=== PATIENT | male | born 1975 | race Hispanic/Latino ===

== ENCOUNTER 2019-10-02 19:40 | Inpatient (IN) | payer SELFPAY ==
[~2019-10-02 19:40] MED LIST: Dexamethasone 20 MG/5 ML VIAL ONE; Esmolol 100 MG/10 ML VIAL ONE; Glycopyrrolate 0.2 MG/ML 5 ML SYRINGE ONE; Iopamidol-370 76% 500 ML 1 ML ONE; Ondansetron PF 4 MG/2 ML Vial ONE; PHENYLEPHRINE-NS 100 MCG/ML 10 ML SYRINGE ONE; PROPOFOL 200 MG/20 ML VIAL ONE; Rocuronium Bromide 10 MG/ML (10ML VIAL) ONE; Succinylcholine Chloride 20 MG/ML 10 ml SYRINGE FS ONE; diphenhydrAMINE 50 MG/ML VIAL ONE
[2019-10-02] MEDS ORDERED: Morphine 4 MG/ML VIAL ONE (19:56)
[2019-10-02] MEDS ORDERED: Ondansetron PF 4 MG/2 ML Vial ONE (19:56)
[2019-10-02 20:10] LABS: Hemoglobin 9.5 g/dL (14.0-18.0); Mean Corpuscular HGB CONC 30.4 g/dL (32.0-36.0); Mean Corpuscular Hemoglobin 19.8 pg (27.0-31.0); Mean Corpuscular Volume 65.1 fL (78.0-98.0); Mean Platelet Volume 11.5 fL (7.4-10.4); Platelet Count 289 thou/uL (130-400); RBC Distribution Width 16.2 % (11.5-14.5); Red Blood Cell (RBC) Count 4.78 mill/uL (4.70-6.10); White Blood Cell (WBC) Count 23.1 thou/uL (4.8-10.8)
[2019-10-02] MEDS ORDERED: Piperacillin/Tazobactam 4.5 GM VIAL ONE (20:20)
[2019-10-02 20:32] LABS: ALT (SGPT) 8 U/L (8-55); AST (SGOT) 10 U/L (5-34); Albumin 3.9 g/dL (3.5-5.0); Alkaline Phosphatase 102 U/L (40-110); Anion Gap 12 mmol/L (10-20); Anisocytosis MODERATE=16-30 cells (100X) (0-5/hpf); BUN (Urea Nitrogen) 10 mg/dL (8.9-20.6); Band 22 % (5-11); Bilirubin, Total 0.8 mg/dL (0.2-1.2); Calc. Creatinine Clearance 0 mL/min (70-130); Calcium 8.6 mg/dL (7.8-10.44); Carbon Dioxide 24 mmol/L (22-29); Chloride 101 mmol/L (98-107); Estimated GFR-MDRD Greater than 90; Globulin 3.5 g/dL (2.4-3.5); Glucose 200 mg/dL (70-105); Hypochromia SLIGHT = 6-15 cells (100X) (0-5/hpf); Large Platelets SLIGHT; Lipase 13 U/L (8-78); Lymphocytes 1 % (21-51); MDiff Complete? YES; Microcytosis MODERATE=15-30 cells (100X) (0-5/hpf); Monocytes 7 % (0-10); Neutrophil 70 % (42-75); Ovalocytes SLIGHT = 2-5 cells (100X) (0-1/hpf); Platelet Morphology Comment Appears Adequate; Polychromasia SLIGHT = 2-3 cells (100X) (0-2/hpf); Potassium 3.4 mmol/L (3.5-5.1); Protein, Total 7.4 g/dL (6.0-8.3); Sodium 134 mmol/L (136-145); Stomatocytes SLIGHT = 2-5 cells (100X) (0-1/hpf); Target Cells SLIGHT = 2-5 cells (100X) (0-1/hpf)
--- NOTE | 2019-10-02 20:43 | CT ---
CT ABDOMEN AND PELVIS WITH CONTRAST: History: Abdominal pain Comparison: CT stone protocol for 2008 for reference. FINDINGS: Lung bases are clear. No pericardial effusion. Liver and gallbladder and spleen are unremarkable. There appears to be an ulcerative mass of the hepatic flexure with extradorsal extension and some drea roperforation to the adjacent mesentery. Underlying infectious colitis is felt somewhat less likely. There are few right coloc abnormal lymph nodes. Transverse colon and descending colon are intact. No hydronephrosis. No abnormal hepatic mass. Too small to characterize hepatic hypodensities are present. No acute osseous abnormality. Disc osteophyte complex at L5-S1. IMPRESSION: Ulcerative mass of the hepatic flexure with microperforation along the medial wall and metastatic rig ht coloc lymph nodes. Code CR. Dr. Deng notified via telephone at 8:28 p.m. POS: HOME
[2019-10-02 20:58] LABS: INR-International Normal Ratio 1.1; PTT 27.3 sec (22.9-36.1); Prothrombin Time 14.4 sec (12.0-14.7)
--- NOTE | 2019-10-02 21:01 | RAD ---
CHEST ONE VIEW: History: Pre-operative evaluation. Comparison: 2013 FINDINGS: The heart size is mildly enlarged. Lungs are hypoinflated with vascular crowding. IMPRESSION: No acute intrathoracic abnormality. POS: HOME
[2019-10-02 21:54] LABS: Bilirubin Negative (Negative); Blood, Urine Negative (Negative); Clarity Clear (Clear); Glucose, Urine (Dipstick) 30 mg/dL (Negative); Leukocyte Negative Leu/uL (Negative); Nitrite Negative (Negative); Protein, Urine (Dipstick) Negative (Neg-Trace); Urobilinogen Normal mg/dL (Less than 2)
[2019-10-02] MEDS ORDERED: Ketamine 50 MG/ML (10ML VIAL) ONE (22:02)
[2019-10-02] MEDS ORDERED: Midazolam HCl 2 mg/2 ml Vial ONE (22:02)
[2019-10-02] MEDS ORDERED: Albumin 5% 500 ML ONE ×2 (22:02→22:37)
[2019-10-02] MEDS ORDERED: Fentanyl 250 MCG/5 ML VIAL ONE (22:02)
[2019-10-02] MEDS ORDERED: Phenylephrine 10 MG/ML VIAL ONE (22:02)
--- NOTE | 2019-10-02 22:22 | HP ---
HISTORY OF PRESENT ILLNESS: Mr. Krause is a 44-year-old man, presented to emergency department today. The patient reports insidious onset right upper greater than left lower quadrant abdominal pain, which started approximately at 5:00 p.m. The pain was reported as sharp, rated as 7/10 at onset and increasing intensity to high 9/10. The pain is associated with multiple episodes of nausea, but no emesis. The patient denies any hematochezia or melena. He endorses a 40-pound weight loss over the last one year. He denies any fevers or chills. He denies any appetite loss or fatigue. PAST MEDICAL HISTORY: Pertinent for type 2 diabetes mellitus and essential hypertension for which he takes no medications. PAST SURGICAL HISTORY: Denies any previous surgeries. SOCIAL HISTORY: He was recently released from a three month incarceration. He is employed as a warehouse driver. He smokes about 5 cigarettes per day, has done so for about 15 years. He admits to occasional intake of ethanol in moderate amounts, usually drinks over the weekends. He denies any illicit drug abuse. FAMILY HISTORY: Notable for diabetes mellitus, essential hypertension, and ovarian carcinoma in his mother. He denies any family history of heart disease or any other gastrointestinal disorders. CURRENT MEDICATION: Includes oral hypoglycemics. ALLERGIES: THE PATIENT DENIES ANY KNOWN DRUG ALLERGIES. REVIEW OF SYSTEMS: Ten-point review of systems essentially unremarkable except as stated in past medical history and chief complaint. PHYSICAL EXAMINATION: GENERAL: This reveals a 44-year-old normally developed man, who is otherwise coherent, interactive, and appears stated age. The patient is alert and oriented x3. He appears to be in moderate acute distress secondary to severe abdominal pain. VITAL SIGNS: Currently include blood pressure 143/78, pulse 125, respiratory rate is 22, oxygen saturation is 98% on room air. HEENT: Reveals normocephalic and atraumatic. Pupils are equal, round, reactive to light and accommodation. Extraocular muscles are intact bilaterally. No scleral icterus present. HEART: Reveals regular rate with sinus tachycardia. No murmurs or gallops auscultated. LUNGS: Clear to auscultation bilaterally. His breathing is regular and nonlabored. ABDOMEN: Soft and diffusely tender to palpation, worse in the right upper quadrant. Liver and spleen otherwise nonpalpable below costal margin. EXTREMITIES: Reveal 2+ radial and pedal pulses bilaterally. No ankle edema is present. NEUROLOGIC: Reveals no focal deficits present. LABORATORY FINDINGS: Today include a CBC with 23,100 white blood cells, hemoglobin and hematocrit of 9.5 and 31.1, MCV 65.1, platelet count is 289,000. Differential counts as follows; 70 segmented neutrophils, 22 bands, 1 lymphocyte and 7 monocytes. PTT and INR normal at 27.3 seconds and 1.1 respectively. Metabolic profile; sodium 134, potassium 3.4, chloride is 101, bicarb is 24, BUN 10, creatinine 0.80, glucose 200, lactic acid 2.1. AST and ALT 10 and 8 respectively. Serum lipase is normal at 13. I have personally reviewed the CT scan of the abdomen and pelvis, which reveals an ulcerative mass in the colonic hepatic flexure with adjacent microperforation. No significant free fluid is noted. IMPRESSIONS: 1. Acute perforated viscus associated with colonic mass, likely neoplastic. 2. Acute microcytic and hypochromic anemia, likely secondary to neoplastic process. 3. Acute hypokalemia. 4. Type 2 diabetes mellitus. RECOMMENDATION: Exploratory laparotomy and possible bowel resection with primary anastomosis now. I have advised the patient of the above findings and recommendations. I have also informed him of the risks and benefits of the proposed surgery to include, but not limited to bleeding, infection, injury to bowel or surrounding structures. The patient is also made aware that there is a possibility for protective proximal ileostomy versus colostomy, either of which would be temporary if chosen. This information was given to the patient through a director of partner marketing in the presence of the patient's nurse. The patient indicates understanding of information provided. I have answered his questions. The patient is going to consent for this admission and surgical intervention. Job ID: [id number] [facility]
[2019-10-03] MEDS ORDERED: Ketorolac Tromethamine 30 MG/ML VIAL ONE (01:18)
[2019-10-03] MEDS ORDERED: diphenhydrAMINE 50 MG/ML VIAL IM PRN (01:22)
[2019-10-03] MEDS ORDERED: diphenhydrAMINE 25 MG CAP PO PRN (01:22)
[2019-10-03] MEDS ORDERED: Ketorolac Tromethamine 30 MG/ML VIAL IVP PRN (01:22)
[2019-10-03] MEDS ORDERED: diphenhydrAMINE 50 MG/ML VIAL IVP PRN (01:22)
[2019-10-03] MEDS ORDERED: Naloxone HCl 0.4 mg/ml Vial IV PRN (01:22)
[2019-10-03] MEDS ORDERED: Promethazine HCl 25 MG/ML VIAL IM PRN ×2 (01:22)
[2019-10-03] MEDS ORDERED: Ondansetron PF 4 MG/2 ML Vial IVP PRN ×2 (01:22)
[2019-10-03] MEDS ORDERED: hydrALAZINE 20 MG/ML VIAL SLOW IVP PRN (01:22)
[2019-10-03] MEDS ORDERED: Communication Order-Pharmacy FS SCH (01:30)
[2019-10-03] MEDS ORDERED: Sodium Chloride 0.9% 1,000 ML IV SCH (01:30)
[2019-10-03 01:47] VITALS: BMI 31.5
[2019-10-03 01:50] LABS: Lactic Acid 1.8 mmol/L (0.5-2.2)
[2019-10-03] MEDS ORDERED: HYDROmorphone 0.5 MG/0.5 ML SYRINGE SLOW IVP SCH (02:00)
--- NOTE | 2019-10-03 02:07 | OP ---
DATE OF PROCEDURE: 10/03/2019 PREOPERATIVE DIAGNOSES: 1. Acute perforated viscus with peritonitis. 2. Colon mass. POSTOPERATIVE DIAGNOSES: 1. Acute perforated viscus with peritonitis. 2. Colon mass. PROCEDURES PERFORMED: 1. Exploratory laparotomy. 2. Right hemicolectomy with primary anastomosis. 3. Wedge liver biopsy. 4. Feeding nasojejunal tube placement. ANESTHESIA: General endotracheal. ESTIMATED BLOOD LOSS: 200 mL. FLUIDS GIVEN: 1200 mL of crystalloids and 500 mL of 5% albumin. COUNTS: Sponge and instrument counts were verified as correct x2. COMPLICATIONS: None apparent at time of operation. INDICATIONS FOR OPERATION: A 44-year-old man, presented with 40-pound weight loss over one year and insidious onset right-sided abdominal pain. Clinical and radiographic examination were consistent with acute perforated viscus and incidental finding of large right colon mass. The patient was brought to the operating room for abdominal exploration. Findings are consistent with cloudy ascitic fluid associated with bulky right colon mass just proximal to the hepatic flexure extending to proximal transverse colon. There was also a spot on the anterolateral surface of the liver, which was biopsied for suspicion of metastatic disease. DESCRIPTION OF PROCEDURE: Informed consent was obtained from the patient and was brought to the operating room and placed in supine position. Following general anesthesia, a Gann catheter was inserted and placed to bedside drain. Nasogastric tube was inserted and placed to wall suction. Abdomen was sterilely prepped and draped in usual fashion. A midline incision was made using 10 scalpel. Incision was carried through subcutaneous tissues maintaining hemostasis using cautery. Fascia was incised in the midline exposing the peritoneum, beneath which was grasped x2 with hemostats. Peritoneal cavity was sharply entered using Metzenbaum scissors. The incisions were then extended superiorly and inferiorly. Bookwalter retractor was put in place to gain exposure. Moderate amount of cloudy ascitic fluid was evacuated. Small bowel was then run from ligament of Treitz down to terminal ileum. The large intestine was inspected from the cecum through the ascending colon to hepatic flexure, where a large bulky tumor was identified and the tumor extended into proximal transverse colon. Beyond the proximal transverse colon, the remainder of the colon was palpated free of any abnormalities down to the descending, sigmoid colon, and rectum. Previous nasogastric tube was palpated within the gastric lumen. Normal gallbladder was noted in the usual anatomic location. There was a small lesion in the inferolateral aspect of the liver, which was suspicious for metastatic disease and required biopsy. At this juncture, the right colon was mobilized along the white line of Toldt. Care was taken to avoid injury to underlying duodenum. I placed a rent through the mesentery of the distal ileum, approximately 6 cm from the ileocecal junction. Through this, SOL stapler was introduced and bowel was divided. I also placed another rent through the transverse mesocolon, approximately 7 cm to the termination of the bulky colon mass. Through this, again, SOL stapler was introduced and the bowel was divided. Mesentery of the right colonic specimen was sterilely divided using LigaSure device with good hemostasis. Specimen was passed off the operative field, followed by transmission to Pathology. At this juncture, a lip of omentum which was quite proximal to the specimen was serially divided using LigaSure device and passed off the operative field, followed by transmission to Pathology. The lesion in the anterior aspect of the liver was excised using a scalpel and passed off the operative field for pathology. Hemostasis was achieved here with cautery. At this juncture, a feeding nasojejunal tube was inserted by Anesthesia, the tip of which was palpated by myself within the gastric lumen. I manipulated tip of this catheter into proximal small bowel without resistance. I then decided to proceed with reapproximation of bowel continuity. To achieve this, the stapled end of the small bowel and transverse colon were approximated in a [id number] fashion, antimesenteric border using interrupted sutures of 3-0 silk. Enterotomies were made at both apices, through which free ends of SOL stapler was introduced and functional end-to-end but anatomic ileocolostomy was perfected. Resultant mesenteric defect was closed using a running stitch of 2-0 Vicryl. The abdominal cavity was copiously irrigated clear with saline solution. All sponges and instruments were removed and accounted for. I placed a sheet of Seprafilm in the deep pelvis prior to returning small bowel to normal anatomic location. I then placed a second sheet of Seprafilm over remainder of the small bowel, drawing omentum over this. Fascia was approximated in the midline using a running stitch of #1 single stranded PDS. Subcutaneous tissues were pulse lavaged with 3000 mL sterile saline. Hemostasis was achieved using cautery. Deep subcutaneous tissues were approximated using interrupted sutures of 3-0 Vicryl. Skin incision was closed using payton. Sterile dressings were applied. The patient tolerated this operation without any apparent complication and was returned to recovery room in satisfactory condition. Job ID: [id number]
[2019-10-03] MEDS: HYDROmorphone 10 mg/100 ml CADD IVPB PRN ×2 (02:13→23:57)
[2019-10-03] MEDS ORDERED: Potassium Chloride 20 MEQ in Lactated Ringer's 1,000 ML IV SCH (02:15)
[2019-10-03 02:20] LABS: Magnesium 1.2 mg/dL (1.6-2.6); Phosphorus 2.7 mg/dL (2.3-4.7)
[2019-10-03] MEDS: cefOXitin Sodium/Dextrose,Iso 2 GM in Premix Bag 1 BAG IVPB SCH ×3 (05:31→22:14)
[2019-10-03] MEDS: Insulin Regular 300 UNITS/3 ML VIAL SC PRN ×3 (05:33→16:50)
[2019-10-03 07:00] LABS: Hemoglobin 8.8 g/dL (14.0-18.0); Mean Corpuscular HGB CONC 30.1 g/dL (32.0-36.0); Mean Corpuscular Hemoglobin 19.9 pg (27.0-31.0); Mean Platelet Volume 11.1 fL (7.4-10.4); Platelet Count 277 thou/uL (130-400); RBC Distribution Width 16.1 % (11.5-14.5); Red Blood Cell (RBC) Count 4.41 mill/uL (4.70-6.10); White Blood Cell (WBC) Count 26.5 thou/uL (4.8-10.8)
[2019-10-03 07:13] LABS: Anion Gap 12 mmol/L (10-20); BUN (Urea Nitrogen) 8 mg/dL (8.9-20.6); Calc. Creatinine Clearance 144 mL/min (70-130); Calcium 7.7 mg/dL (7.8-10.44); Carbon Dioxide 23 mmol/L (22-29); Chloride 104 mmol/L (98-107); Estimated GFR-MDRD Greater than 90; Glucose 285 mg/dL (70-105); Magnesium 1.4 mg/dL (1.6-2.6); Potassium 4.2 mmol/L (3.5-5.1); Sodium 135 mmol/L (136-145)
[2019-10-03 07:17] LABS: Band 13 % (5-11); Hypochromia SLIGHT = 6-15 cells (100X) (0-5/hpf); Lymphocytes 1 % (21-51); MDiff Complete? YES; Metamyelocyte 1 % (0-0); Microcytosis MODERATE=15-30 cells (100X) (0-5/hpf); Monocytes 1 % (0-10); Neutrophil 82 % (42-75); Platelet Morphology Comment Appears Adequate; Polychromasia SLIGHT = 2-3 cells (100X) (0-2/hpf); Promyelocytes 2 % (0-0)
[2019-10-03] MEDS ORDERED: Magnesium Sulfate 3 GM in Sodium Chloride 0.9% 100 ML IVPB SCH (09:00)
[2019-10-03] MEDS: Famotidine 20 MG TAB PO SCH ×2 (09:16→20:09)
[2019-10-03] MEDS: Famotidine/PF 20 mg/2ml Vial SLOW IVP SCH ×2 (09:16→20:09)
--- NOTE | 2019-10-03 09:20 | RAD ---
SINGLE VIEW OF THE ABDOMEN: COMPARISON: None. HISTORY: Dobbhoff tube placement. FINDINGS: A single view of the abdomen shows a nonspecific, nonobstructed bowel gas pattern. An NG tube is see n in the stomach. A Dobbhoff tube is seen with its tip near the ligament of Treitz. Midline skin st aples are seen. IMPRESSION: Appropriate position of nasogastric tube and Dobbhoff tube. POS: [facility]
[2019-10-03] MEDS: Lactated Ringer's 1,000 ML IV SCH ×2 (10:57→16:54)
[2019-10-03] MEDS: Enoxaparin Sodium 40 MG/0.4 ML SYRINGE SC SCH (10:58)
--- NOTE | 2019-10-03 19:50 | PRG ---
DATE OF SERVICE: 10/03/2019 SUBJECTIVE: The patient is currently on the surgical floor. He has been moved up from the critical care unit. He is status post exploratory laparotomy, right hemicolectomy with primary anastomosis, wide liver biopsy, and placement of feeding nasojejunal tube. The patient was admitted to the hospital last night for acute onset of abdominal pain, underwent evaluation and examination, and was noted to have a perforated viscus. At which time, he was taken to the operating room and underwent his above procedures. Postoperatively, he had a short stay in the critical care unit, and this morning was able to be moved to the surgical floor. He is currently tolerating trickle feed. His pain is controlled with the Dilaudid BOAT MASTER, and he has no complaints at this time. OBJECTIVE: VITAL SIGNS: Temperature is 98.3, heart rate 96, blood pressure 135/79, respirations 20, and oxygen saturation 95% on room air. GENERAL: The patient is resting comfortably in bed. He is awake, conversant, appropriate. LUNGS: Clear to auscultation bilaterally. HEART: Regular rate and rhythm. ABDOMEN: Soft with no gross peritoneal signs. Moderate tenderness near his incision site. His postop dressing is clean, dry, and intact. EXTREMITIES: Neurovascularly intact x4. LABORATORY FINDINGS: White blood cell count 26.5, hemoglobin 8.8, hematocrit 29.1, platelets 277. Sodium 135, potassium 4.2, chloride 104, CO2 of 23, BUN 8, creatinine 0.84, glucose 285, magnesium 1.4, phosphorus 3.0. There are no radiographs reviewed this morning. ASSESSMENT AND PLAN: 1. Status post exploratory laparotomy with right hemicolectomy with primary anastomosis. 2. Status post wedge liver biopsy. 3. Status post tube placement of feeding nasojejunal tube. 4. History of acute perforated viscus with peritonitis. 5. History of colon mass. PLAN: To continue supportive care, pain control with BOAT MASTER. Continue trickle feeds. Encourage ambulation tomorrow. Continue advancing tube feeds as tolerated. Job ID: [id number]
[2019-10-03] MEDS ORDERED: Dextrose 50% Abboject 50 ML SYRINGE IVP PRN (20:10)
[2019-10-03] MEDS ORDERED: Dextrose 5% in Water 1,000 ML IV PRN (20:10)
--- NOTE | 2019-10-04 01:57 | PRG ---
DATE OF SERVICE: 10/04/2019 SUBJECTIVE: Mr. Krause currently remains in surgical floor. The patient was seen on round this evening. The patient reports pain is well controlled. The patient not yet passing gas or have bowel. The patient's urine is adequate. Vital signs have been stable. NG tube put out of 175 today. NG tube working properly. Currently, the patient lying in bed comfortable with no acute respiratory distress. OBJECTIVE: VITAL SIGNS: Temperature 98.5, heart rate 99, respiratory rate 18, O2 saturation 97% on room air, and blood pressure 131/73. LUNGS: Clear bilaterally. HEART: Regular rate and rhythm. ABDOMEN: Soft and nondistended. NG tube working probably. Postop dressing clean, dry, and intact. EXTREMITIES: Neurovascularly intact x4. ASSESSMENT: Status post exploratory laparotomy with right hemicolectomy with primary anastomosis, status post wedge liver biopsy, perforated viscus with peritonitis, and colon mass. PLAN: Continue supportive care. Continue pain control. The patient will be working with Physical Therapy and Occupational Therapy. Continue tube feeding as tolerated. Job ID: [id number]
[2019-10-04] MEDS: cefOXitin Sodium/Dextrose,Iso 2 GM in Premix Bag 1 BAG IVPB SCH ×3 (05:09→21:50)
[2019-10-04] MEDS: Lactated Ringer's 1,000 ML IV SCH ×3 (05:09→16:01)
[2019-10-04 06:33] LABS: Anion Gap 9 mmol/L (10-20); BUN (Urea Nitrogen) 9 mg/dL (8.9-20.6); Calc. Creatinine Clearance 159 mL/min (70-130); Calcium 7.9 mg/dL (7.8-10.44); Carbon Dioxide 28 mmol/L (22-29); Chloride 103 mmol/L (98-107); Estimated GFR-MDRD Greater than 90; Glucose 151 mg/dL (70-105); Potassium 3.6 mmol/L (3.5-5.1); Sodium 136 mmol/L (136-145)
[2019-10-04 07:14] LABS: #Eosinphils 0.1 thou/uL (0.0-0.7); #Lymphocytes 2.1 thou/uL (1.20-3.40); #Monocytes 0.9 thou/uL (0.11-0.59); %Basophils 0.3 % (0.0-1.0); %Eosinophils 0.4 % (0.0-10.0); %Lymphocytes 14.6 % (21.0-51.0); %Monocytes 6.6 % (0.0-10.0); %Neutrophils 78.1 % (42.0-75.0); Hemoglobin 7.7 g/dL (14.0-18.0); Mean Corpuscular HGB CONC 29.2 g/dL (32.0-36.0); Mean Corpuscular Hemoglobin 19.6 pg (27.0-31.0); Mean Corpuscular Volume 67.1 fL (78.0-98.0); Mean Platelet Volume 9.7 fL (7.4-10.4); Platelet Count 262 thou/uL (130-400); Red Blood Cell (RBC) Count 3.94 mill/uL (4.70-6.10); White Blood Cell (WBC) Count 14.1 thou/uL (4.8-10.8)
[2019-10-04] MEDS: Famotidine 20 MG TAB PO SCH ×2 (08:56→20:37)
[2019-10-04] MEDS: Enoxaparin Sodium 40 MG/0.4 ML SYRINGE SC SCH (09:02)
[2019-10-04 09:06] LABS: Magnesium 2.1 mg/dL (1.6-2.6); Phosphorus 1.4 mg/dL (2.3-4.7)
[2019-10-04 11:06] LABS: #Eosinphils 0.1 thou/uL (0.0-0.7); #Lymphocytes 1.6 thou/uL (1.20-3.40); #Neutrophils 11.7 thou/uL (1.40-6.50); %Basophils 0.2 % (0.0-1.0); %Eosinophils 0.4 % (0.0-10.0); %Monocytes 6.9 % (0.0-10.0); %Neutrophils 81.5 % (42.0-75.0); Mean Corpuscular HGB CONC 29.1 g/dL (32.0-36.0); Mean Corpuscular Hemoglobin 19.5 pg (27.0-31.0); Mean Platelet Volume 9.7 fL (7.4-10.4); Platelet Count 257 thou/uL (130-400); RBC Distribution Width 16.1 % (11.5-14.5); Red Blood Cell (RBC) Count 4.07 mill/uL (4.70-6.10); White Blood Cell (WBC) Count 14.4 thou/uL (4.8-10.8)
[2019-10-04 11:22] LABS: Anion Gap 9 mmol/L (10-20); BUN (Urea Nitrogen) 9 mg/dL (8.9-20.6); Calc. Creatinine Clearance 170 mL/min (70-130); Calcium 7.9 mg/dL (7.8-10.44); Carbon Dioxide 30 mmol/L (22-29); Chloride 102 mmol/L (98-107); Estimated GFR-MDRD Greater than 90; Glucose 175 mg/dL (70-105); Potassium 3.6 mmol/L (3.5-5.1); Sodium 137 mmol/L (136-145)
[2019-10-04 11:32] LABS: Phosphorus 1.2 mg/dL (2.3-4.7)
[2019-10-04] MEDS ORDERED: Potassium Phosphate 30 MMOL in Sodium Chloride 0.9% 250 ML 250 ML IVPB SCH (11:45)
[2019-10-04] MEDS ORDERED: Magnesium Sulfate 3 GM, Admixture Fee 1 EACH in Sodium Chloride 0.9% 100 ML IVPB SCH (12:15)
[2019-10-04] MEDS: Insulin Regular 300 UNITS/3 ML VIAL SC PRN (13:14)
--- NOTE | 2019-10-04 16:02 | PRG ---
DATE OF SERVICE: 10/04/2019 SUBJECTIVE: Mr. Krause is a 44-year-old man, who is postoperative day #1, status post exploratory laparotomy, right hemicolectomy with primary anastomosis, and wedge liver biopsy. The patient is awake and alert. He reports adequate pain control. Urinary output is adequate for the patient's age and weight. OBJECTIVE: VITAL SIGNS: Today include blood pressure 162/93, pulse 108, respiratory rate is 20, temperature is 99.6 degrees Fahrenheit, oxygen saturation is 95% on room air. HEENT: Reveals normocephalic and atraumatic. Pupils are equal, round, reactive to light, and accommodation. Extraocular muscles are intact bilaterally. No scleral icterus are present. Oral mucosa is pink and moist. No lesions noted. HEART: Reveals regular rate with sinus tachycardia. No murmurs or gallops auscultated. LUNGS: Clear to auscultation bilaterally. Breathing, regular and nonlabored. ABDOMEN: Soft and nondistended. Incision is intact, clean, and dry. He has no peritoneal signs on examination. LABORATORY FINDINGS: Today include a CBC with 14,400 white blood cells, hemoglobin and hematocrit 8.0 and 27.3 respectively, platelet count is 257,000. Metabolic profile; sodium 137, potassium 3.6, chloride is 102, bicarb is 30, BUN 9, creatinine 0.71, glucose 175, magnesium is 2.0, and phosphorus is 1.2. IMPRESSION: 1. Postop day #1 status post exploratory laparotomy with right hemicolectomy for metastatic colon carcinoma. 2. Acute hypokalemia. 3. Acute hypophosphatemia. 4. Chronic blood loss anemia secondary to metastatic colon carcinoma. 5. Essential hypertension. PLAN: 1. Correct abnormal electrolytes. 2. We will start the patient on low-dose antihypertensives. 3. Increase activity per Physical and Occupational Therapy. 4. Gann catheter will be discontinued. 5. We will continue with trophic enteral nutritional supplementation up until return of bowel function. 6. Above findings and plan discussed with the patient through a sewer digger. 7. He indicates understanding of information given. Job ID: [id number]
[2019-10-04] MEDS: Acetaminophen 325 MG TAB PO SCH (20:01)
[2019-10-04 20:42] LABS: Bacteria/HPF None Seen HPF (None Seen); Bilirubin Negative (Negative); Blood, Urine Negative (Negative); Clarity Clear (Clear); Glucose, Urine (Dipstick) 30 mg/dL (Negative); Leukocyte Negative Leu/uL (Negative); Nitrite Negative (Negative); Protein, Urine (Dipstick) 10 mg/dL (Neg-Trace); RBC/HPF 0-3 HPF (0-3); Squamous Epithelial None Seen HPF (0-3); Urobilinogen Normal mg/dL (Less than 2)
[2019-10-04 20:46] LABS: Urine Culture Reflex Yes Yes
--- NOTE | 2019-10-04 22:59 | PDOC.BPN ---
- Brief Progress Note DATE OF SERVICE: 10/04/2019 SUBJECTIVE: Mr. Krause currently remains in surgical floor. The patient was seen on round this evening. The patient reports pain is controlled. The patient not yet passing gas or have bowel. The patient's urine is adequate. Vital signs have been stable. NG tube put out of 400 today. NG tube working properly, NG tube is clammed and patient is tolerate with his tube feeding. This evening, patient developed fever with peak is 101 Currently, the patient lying in bed comfortable with no acute respiratory distress. OBJECTIVE: VITAL SIGNS: stable LUNGS: Clear bilaterally. HEART: Regular rate and rhythm. ABDOMEN: Soft and nondistended. NG tube working probably. Postop dressing clean, dry, and intact. EXTREMITIES: Neurovascularly intact x4. ASSESSMENT: Status post exploratory laparotomy with right hemicolectomy with primary anastomosis, status post wedge liver biopsy, perforated viscus with peritonitis, and colon mass. PLAN: Tylenol for fever. blood culture, urine culture is ordered Continue supportive care. Continue pain control. The patient will be working with Physical Therapy and Occupational Therapy. Continue tube feeding as tolerated.
[2019-10-05] MEDS ORDERED: Insulin Regular 300 UNITS/3 ML VIAL SC PRN (00:27)
[2019-10-05] MEDS: Lactated Ringer's 1,000 ML IV SCH ×2 (03:00→08:26)
[2019-10-05] MEDS: HYDROmorphone 10 mg/100 ml CADD IVPB PRN (03:00)
[2019-10-05] MEDS: Acetaminophen 325 MG TAB PO SCH ×3 (03:00→13:31)
[2019-10-05] MEDS: cefOXitin Sodium/Dextrose,Iso 2 GM in Premix Bag 1 BAG IVPB SCH ×3 (05:21→20:15)
[2019-10-05] MEDS: Insulin Regular 300 UNITS/3 ML VIAL SC PRN ×2 (05:33→13:03)
[2019-10-05 05:34] LABS: #Eosinphils 0.1 thou/uL (0.0-0.7); #Lymphocytes 1.6 thou/uL (1.20-3.40); #Monocytes 0.7 thou/uL (0.11-0.59); %Basophils 0.2 % (0.0-1.0); %Eosinophils 0.5 % (0.0-10.0); %Lymphocytes 17.4 % (21.0-51.0); %Monocytes 7.5 % (0.0-10.0); %Neutrophils 74.3 % (42.0-75.0); Hemoglobin 7.4 g/dL (14.0-18.0); Mean Corpuscular HGB CONC 28.7 g/dL (32.0-36.0); Mean Corpuscular Hemoglobin 19.1 pg (27.0-31.0); Mean Corpuscular Volume 66.4 fL (78.0-98.0); Platelet Count 257 thou/uL (130-400); RBC Distribution Width 15.6 % (11.5-14.5); Red Blood Cell (RBC) Count 3.86 mill/uL (4.70-6.10); White Blood Cell (WBC) Count 9.4 thou/uL (4.8-10.8)
[2019-10-05 05:55] LABS: Anion Gap 11 mmol/L (10-20); BUN (Urea Nitrogen) 6 mg/dL (8.9-20.6); Calc. Creatinine Clearance 183 mL/min (70-130); Calcium 7.9 mg/dL (7.8-10.44); Carbon Dioxide 28 mmol/L (22-29); Chloride 100 mmol/L (98-107); Estimated GFR-MDRD Greater than 90; Glucose 156 mg/dL (70-105); Magnesium 2.1 mg/dL (1.6-2.6); Phosphorus 2.3 mg/dL (2.3-4.7); Sodium 135 mmol/L (136-145)
[2019-10-05] MEDS: Famotidine 20 MG TAB PO SCH (08:25)
[2019-10-05] MEDS: Enoxaparin Sodium 40 MG/0.4 ML SYRINGE SC SCH (09:46)
--- NOTE | 2019-10-05 12:06 | PRG ---
DATE OF SERVICE: 10/05/2019 SUBJECTIVE: Mr. Krause is a postoperative day #2, status post exploratory laparotomy, right hemicolectomy for metastatic colon cancer. He reports adequate pain control. He is ambulating with minimum difficulty. Urinary output is adequate for the patient's age and weight. OBJECTIVE: VITAL SIGNS: Today include blood pressure 153/83, pulse 84, respiratory rate is 14, temperature is 99 degrees Fahrenheit with a maximum temperature within the last 24 hours of 101.4 degrees Fahrenheit, oxygen saturation 96% on room air. HEENT: Pupils are equal, round, reactive to light and accommodation. HEART: Reveals regular rate and rhythm. No murmurs or gallops auscultated. LUNGS: Clear to auscultation bilaterally. His breathing is regular, unlabored. ABDOMEN: Soft and nondistended. Incision is intact, clean, and dry. Bowel sounds are present in all 4 quadrants. NEUROLOGIC: Reveals no focal deficits present. LABORATORY FINDINGS: Include a CBC with 9400 white blood cells, hemoglobin and hematocrit 7.4 and 25.6 respectively. Platelet count is 257,000. Metabolic profile; sodium is 135, potassium 4.0, chloride is 100, bicarb is 28, BUN is 6, creatinine 0.66, glucose 156, magnesium 2.1, and phosphorus is 2.3. IMPRESSIONS: 1. Postop day #2, status post exploratory laparotomy, right hemicolectomy for metastatic colon cancer. 2. Acute hyponatremia. 3. Acute hypophosphatemia. PLAN: 1. Increase activity per Physical and Occupational therapy. 2. Continue trophic enteral nutritional supplementation until return of bowel function. 3. We will discontinue Gann catheterization. 4. We will consult Oncology once pathology report is released. 5. Above findings and plan discussed with the patient, who indicates understanding of information given. I have answered his questions. Job ID: [id number]
[2019-10-05] MEDS ORDERED: traMADol HCl 50 MG TAB PO PRN ×2 (14:07)
[2019-10-05] MEDS ORDERED: Ibuprofen 600 MG TAB PO PRN (14:08)
[2019-10-05] MEDS ORDERED: Acetaminophen 500 MG TAB PO SCH (14:30)
[2019-10-05] MEDS: Acetaminophen 500 MG TAB PO SCH (20:15)
[2019-10-05] MEDS: traMADol HCl 50 MG TAB PO SCH (20:23)
--- NOTE | 2019-10-05 21:05 | PDOC.BPN ---
- Brief Progress Note DATE OF SERVICE: 10/05/2019 SUBJECTIVE: Mr. Krause currently remains in surgical floor. The patient was seen on round this evening. The patient reports pain is well controlled. The patient stated that he has passing gas and having a small bowel. He tolerate with his tube feeding . NG tube was removed . No fever to be reported . The patient's urine is adequate. Vital signs have been stable. OBJECTIVE: Currently, the patient lying in bed comfortable with no acute respiratory distress. VITAL SIGNS: stable LUNGS: Clear bilaterally. HEART: Regular rate and rhythm. ABDOMEN: Soft and nondistended. NG tube working probably. Postop dressing clean, dry, and intact. EXTREMITIES: Neurovascularly intact x4. ASSESSMENT: Status post exploratory laparotomy with right hemicolectomy with primary anastomosis, status post wedge liver biopsy, perforated viscus with peritonitis, and colon mass. PLAN: Continue supportive care. Continue pain control. The patient will be working with Physical Therapy and Occupational Therapy. Continue tube feeding as tolerated.
[2019-10-06] MEDS: traMADol HCl 50 MG TAB PO SCH ×3 (01:18→13:28)
[2019-10-06] MEDS: Acetaminophen 500 MG TAB PO SCH ×3 (01:18→13:28)
[2019-10-06] MEDS: cefOXitin Sodium/Dextrose,Iso 2 GM in Premix Bag 1 BAG IVPB SCH (05:28)
[2019-10-06 05:45] LABS: Iron 13 ug/dL (65-175); Iron Binding Capacity, Total 299 mcg/dL (261-462)
[2019-10-06] MEDS ORDERED: Ferrous Sulfate 325 MG TAB PO SCH (08:00)
[2019-10-06] MEDS ORDERED: Ascorbic Acid 500 mg Chewable Tablet PO SCH (08:00)
[2019-10-06] MEDS: Enoxaparin Sodium 40 MG/0.4 ML SYRINGE SC SCH (08:51)
[2019-10-06] MEDS ORDERED: Amoxicillin/Potassium Clav 875 MG TAB PO SCH (09:00)
[2019-10-06] MEDS ORDERED: Lisinopril 20 MG TAB PO SCH (09:00)
[2019-10-06 11:35] VITALS: BP 129/87; TEMP 98.3
[2019-10-06] MEDS: Insulin Regular 300 UNITS/3 ML VIAL SC PRN (12:03)
--- NOTE | 2019-10-06 12:54 | DIS ---
DATE OF ADMISSION: 10/03/2019 DATE OF DISCHARGE: 10/06/2019 ADMITTING AND DISCHARGE PHYSICIAN: Arian Oliveira DO. ADMITTING DIAGNOSES: 1. Acute perforated viscus with peritonitis. 2. Colon mass. DIAGNOSES ON DISCHARGE: 1. Acute perforated viscus with peritonitis. 2. Colon mass. 3. Metastatic colon carcinoma. SURGERIES PERFORMED: Exploratory laparotomy with right hemicolectomy and primary anastomosis and wedge liver biopsy on 10/03/[address] Oliveira. Please see a separate dictation for the op report. HISTORY/HOSPITAL COURSE: A 44-year-old man presented to the emergency department with acute abdominal pain. Clinical radiographic examination was consistent with acute perforated viscus as well as a colon mass, for which, the patient underwent exploratory laparotomy. The findings were consistent with colon mass with a lesion in the liver, which was biopsy proven to be metastatic adenocarcinoma of the colon with liver metastasis. Postop day #3, the patient is ambulating with minimum difficulty. His pain is adequately controlled on oral analgesics. He is tolerating a full liquid diet, having normal bowel and urinary function. Incisional wound remains intact, clean, and dry. The patient has remained hemodynamically stable and afebrile through this hospitalization. DISCHARGE INSTRUCTIONS: He will be discharged home today with the following instructions. 1. The patient is to follow up with me in the Surgery Clinic in 10 days for staple removal. 2. He has been seen by Oncology today for possible outpatient adjuvant chemotherapy. 3. The patient is instructed to advance his diet and activity as tolerated. 4. He is to ambulate ad trish to avoid complications of venous thromboembolism. He may shower effective today. 5. He is to avoid weight lifting in excess of 20 pounds until he has been released by me. 6. He may take Tylenol 1000 mg p.o. q.6 hours alternating this with ibuprofen 600 mg p.o. q.8 hours p.r.n. pain. Additionally, he was given a prescription for tramadol 50 mg #30 to be taken 1 to 2 p.o. q.6 hours p.r.n. pain. 7. Given his recent colon perforation with peritonitis, the patient was treated with intravenous antibiotics, which was converted to Augmentin 875 mg p.o. b.i.d. 8. He was given a prescription for Augmentin 875 mg p.o. b.i.d. for additional 3 days. 9. The patient is to call me with any questions or problems including exacerbation of abdominal pain, fever in excess of 101 degrees Fahrenheit, intolerance to oral intake, or any abnormal drainage from the wound itself. 10. The patient indicates understanding of information. I provided him today through a foreign language teacher. 11. He has expressed deep gratitude for the care rendered to him during this hospitalization and surgery. Job ID: [id number]
--- NOTE | 2019-10-06 16:09 | CON ---
DATE OF CONSULTATION: REASON FOR CONSULTATION: Metastatic colon cancer. HISTORY OF PRESENT ILLNESS: Mr. Krause is a pleasant 44-year-old gentleman who presented to the emergency room on 10/02 with acute onset of abdominal pain. He had nausea, but no emesis. He had a 40-pound weight loss over the prior year. No melena or hematochezia. He underwent an abdominal and pelvis CT scan. There was an ulcerative mass of the hepatic flexure with microperforation. There was metastatic right colon lymph node. He was taken to Surgery, had an exploratory laparotomy , a right hemicolectomy with primary anastomosis. He had a wedge liver biopsy. He was started on antibiotics. He has been recovering nicely from his surgery. His path of the colon is invasive adenocarcinoma, moderately differentiated, with extensive necrosis and inflammation. The tumor size was 6.5 cm, it was invading the subserosal adipose tissue. He had negative margins. He also had 30 negative lymph nodes. The liver biopsy showed a moderately differentiated metastatic adenocarcinoma. The patient is now eating well and is ready for discharge. He was seen at bedside with his present. Denies any complaints at this time. PAST MEDICAL HISTORY: 1. Diabetes, type 2. 2. Hypertension. PAST SURGICAL HISTORY: None. ALLERGIES: NO KNOWN DRUG ALLERGIES. HOME MEDICATIONS: None. FAMILY HISTORY: His mother had breast cancer and his uncle who had colon cancer. SOCIAL HISTORY: , lives with his spouse. States he smokes a few cigarettes daily. No illicit drug use. Drinks beer daily. REVIEW OF SYSTEMS: Ten-point review of systems is negative. PHYSICAL EXAMINATION: VITAL SIGNS: Temperature is 98.3, pulse is 92, respiratory rate 16, BP is 129/ 87, and he is 99% on room air. GENERAL: This is a well-developed, well-nourished male, in no acute distress. HEENT: Normocephalic and atraumatic. Pupils equal and reactive to light. NECK: Supple. CV: Regular rate and rhythm. LUNGS: Clear. ABDOMEN: Soft and nontender. He has a midline incision with payton intact. No drainage. EXTREMITIES: No clubbing or cyanosis. SKIN: No rash. HEMATOLOGIC: No petechiae or purpura. NEUROLOGIC: Nonfocal. PERTINENT LABORATORY DATA AND X-RAYS: Current WBCs 9.4, hemoglobin 7.4, hematocrit 25.6, MCV is 66.4, and platelet count is 257,000. He has 75% neutrophils and 17 % lymphocytes. PT is 14.4, INR is 1.1, and PTT is 27.3. Sodium is 135, potassium 4, chloride 100, CO2 is 28, BUN is 6, and creatinine 0.66. Hemoglobin A1c was 9. Calcium 7.9. Phosphorus 2.3. Magnesium 2.1. Iron is 13, TIBC is 299, iron saturation is 4, and ferritin is 55. Bilirubin is 0.8, AST is 10, ALT is 8, alkaline phosphatase is 102, serum total protein 7.4, albumin 3.9, globulin 3.3 , and lipase is 13. CEA is 2.57. ASSESSMENT: 1. Metastatic colon cancer. 2. Iron-deficiency anemia. DISCUSSION: The patient is ready for discharge home. He is currently taking oral iron, which he should continue at least twice a day at home. He is a candidate for chemotherapy. This was briefly discussed with the patient. He will likely receive FOLFOX regimen, which is every 2 weeks. He will need a MediPort once his peritonitis has resolved. He is going home on antibiotics and will follow up with Dr. Oliveira in the outpatient setting. He will see Dr. Hankins in 1 week to discuss treatment options. The patient has no insurance. He has seen the financial counselors and the process for financial assistance has started. Our piano case maker at the clinic will follow up with that. Thank you for the consult. We will be happy to take care of this gentleman. Job ID: [id number] [facility]
--- NOTE | 2019-10-08 08:06 | PQF ---
[employer]st [employer] JOSEFA Larson ARIAN OLIVEIRA U [id number] CLINICAL DOCUMENTATION CLARIFICATION FORM: POST DISCHARGE Addendum to original discharge summary date: ____ Late entry note date: __ DATE: 10/08/2019 ATTN: Arian Oliveira Please exercise your independent, professional judgment in responding to the clarification form. Clinical indicators are provided on the bottom of this form for your review Please check appropriate box(s) to clarify if the following diagnosis has been ruled in or ruled out: Sepsis [ ] Ruled in diagnosis [ ] Continue to treat [ x ] Resolved [ ] Ruled out diagnosis [ ] Cannot rule out diagnosis [ ] Other diagnosis [ ] Unable to determine In addition, please specify: Present on Admission (POA): [ x ] Yes [ ] No [ ] Unable to determine For continuity of documentation, please document condition throughout progress notes and discharge summary. Thank You. CLINICAL INDICATORS - SIGNS / SYMPTOMS / LABS Colon mass with bowel perforation. Sepsis - ED note Pulse 120, respiratory rate 22 - ED note Temperature 100.3 F - Vital signs WBC 26.5 on 10/02 and 14.4 on 10/03 - Laboratory RISK FACTORS Acute perforated viscus with peritonitis - Discharge summary Metastatic adenocarcinoma of the colon with liver metastasis - Discharge summary TREATMENTS IV Zosyn - Medications IV fluids 10/02 to 10/03 - Medications (This form is maintained as a part of the permanent medical record) 2014 [employer]. All Rights Reserved Miguel [email or web address]
== END 2019-10-06 17:20 | disposition home or self-care (01) | DRG 853 ==
LOC: ERS 19:40 → SDC 22:15 → CCU 10-03 01:26 → SURG A 10-03 09:25
PROVIDERS: ADMIT Surgery; ATTEND Surgery
PROC: 0DTF0ZZ Resection of Right Large Intestine, Open Approach (ICD-10-PCS; principal; 2019-10-03)
PROC: 0FB00ZX Excision of Liver, Open Approach, Diagnostic (ICD-10-PCS; 2019-10-03)
PROC: 0DHA7UZ Insertion of Feeding Device into Jejunum, Via Natural or Artificial Opening (ICD-10-PCS; 2019-10-03)
DX: A41.9 Sepsis, unspecified organism (principal); K63.1 Perforation of intestine (nontraumatic); K65.9 Peritonitis, unspecified; C18.9 Malignant neoplasm of colon, unspecified; C78.7 Secondary malignant neoplasm of liver and intrahepatic bile duct; E11.9 Type 2 diabetes mellitus without complications; I10 Essential (primary) hypertension; F17.210 Nicotine dependence, cigarettes, uncomplicated; D63.0 Anemia in neoplastic disease; E87.6 Hypokalemia; D50.0 Iron deficiency anemia secondary to blood loss (chronic); E83.39 Other disorders of phosphorus metabolism
CPT/HCPCS: 36415; 36416; 71045; 74018; 74177; 80048; 80053; 81001; 81003; 82274; 82378; 82728; 83036; 83540; 83550; 83605; 83690; 83735; 84100; 84145; 85025; 85610; 85730; 86850; 86900; 86901; 87040; 87076; 87086; 88307; 88309; 93005; 96365; 96375; J0694; J1100; J1170; J1200; J1650; J1815; J1885; J2250; J2270; J2370; J2405; J2543; J2704; J3010; J3475; J3480; J3490; J7050; J7120; P9045; Q9967; S0028

== ENCOUNTER 2019-10-20 08:06 | Outpatient (CLI) | payer OTHER ==
[2019-10-20] MEDS ORDERED: Iopamidol 370 76% 100 ML VIAL ONE (09:26)
--- NOTE | 2019-10-20 13:27 | CT ---
CT CHEST WITH IV CONTRAST CT ABDOMEN WITH IV CONTRAST CT PELVIS WITH IV CONTRAST 10/20/19 HISTORY: Cancer status post resection. Exam requested for staging. COMPARISON: CT abdomen and pelvis of 10/02/19. FINDINGS: No mediastinal, hilar or axillary mass or lymphadenopathy seen. No pleural or pericardial effusions a re identified. Small patchy areas of consolidation in the peripheral aspects of the lower lobes bilaterally, left gr eater than right. These appear to be new in the regions which are imaged on the previous study. There are few nodules in the superior segment of the right lobe of the liver measuring up to 1 cm. There is a new subcapsular 16 mm low dense lesion in the inferior aspect of the right lobe of the bryanna er highly suspicious for metastatic disease. A couple of residual 6 mm lymph nodes are seen in the ri ght pericolonic region. The mass in the right colon noted on the previous exam has been resected in t he interim. The spleen, pancreas, adrenal glands and kidneys are unremarkable. No calcified gallstones are seen. No free air, free fluid or retroperitoneal lymphadenopathy is seen. The small bowel loops are not abn ormally dilated. There is a small fat containing inguinal hernia. No evidence of osseous metastatic disease is seen. IMPRESSION: 1. Patchy areas of consolidation in the lower lobes are likely due to an infection. Viral pneumo jacobo such as COVID-19 should be considered. 2. A few nodules in the right lower lobe may be due to infection or metastatic disease. 3. New liver lesion is highly suspicious for metastatic disease. Findings were discussed over the telephone with Dr. Joe Hankins at 10:13 a.m. POS: SUSAN
== END 2019-10-20 08:07 | disposition home or self-care (01) ==
LOC: CT 08:06
PROVIDERS: ATTEND Internal Medicine Hematology & Oncology
DX: C18.9 Malignant neoplasm of colon, unspecified (principal); C18.3 Malignant neoplasm of hepatic flexure; R91.8 Other nonspecific abnormal finding of lung field; J18.1 Lobar pneumonia, unspecified organism; K76.9 Liver disease, unspecified
CPT/HCPCS: 71260; 74177; Q9967

== ENCOUNTER 2019-11-08 05:50 | Outpatient (CLI) | payer OTHER, SELFPAY ==
[2019-11-08 12:25] LABS: #Eosinphils 0.1 thou/uL (0.0-0.7); #Lymphocytes 1.9 thou/uL (1.20-3.40); #Monocytes 0.4 thou/uL (0.11-0.59); #Neutrophils 3.5 thou/uL (1.40-6.50); %Basophils 0.4 % (0.0-1.0); %Eosinophils 1.6 % (0.0-10.0); %Lymphocytes 32.9 % (21.0-51.0); %Monocytes 6.6 % (0.0-10.0); %Neutrophils 58.5 % (42.0-75.0); Hemoglobin 11.9 g/dL (14.0-18.0); Hypochromia SLIGHT = 6-15 cells (100X) (0-5/hpf); MDiff Complete? YES; Mean Corpuscular HGB CONC 31.1 g/dL (32.0-36.0); Mean Corpuscular Hemoglobin 23.1 pg (27.0-31.0); Mean Corpuscular Volume 74.3 fL (78.0-98.0); Mean Platelet Volume 9.6 fL (7.4-10.4); Microcytosis SLIGHT = 6-15 cells (100X) (0-5/hpf); Ovalocytes SLIGHT = 2-5 cells (100X) (0-1/hpf); Platelet Count 218 thou/uL (130-400); Platelet Morphology Comment Appears Adequate; Polychromasia SLIGHT = 2-3 cells (100X) (0-2/hpf); RBC Distribution Width 25.4 % (11.5-14.5); Red Blood Cell (RBC) Count 5.14 mill/uL (4.70-6.10); White Blood Cell (WBC) Count 5.9 thou/uL (4.8-10.8)
[2019-11-08 12:51] LABS: Anion Gap 13 mmol/L (10-20); BUN (Urea Nitrogen) 12 mg/dL (8.9-20.6); Calc. Creatinine Clearance 0 mL/min (70-130); Calcium 9.7 mg/dL (7.8-10.44); Carbon Dioxide 27 mmol/L (22-29); Chloride 102 mmol/L (98-107); Estimated GFR-MDRD Greater than 90; Glucose 176 mg/dL (70-105); Potassium 4.4 mmol/L (3.5-5.1); Sodium 138 mmol/L (136-145)
[2019-11-10 14:28] LABS: SARS-CoV-2 MS2 Positive; SARS-CoV-2 N Gene Positive; SARS-CoV-2 S Gene Negative; SARS-CoV-2 orf1ab Negative
== END 2019-11-08 05:51 | disposition home or self-care (01) ==
LOC: LABBT 05:50
PROVIDERS: ATTEND Surgery
DX: Z01.812 Encounter for preprocedural laboratory examination (principal); Z11.59 Encounter for screening for other viral diseases; C18.9 Malignant neoplasm of colon, unspecified
CPT/HCPCS: 80048; 85025; 87635; U0003

== ENCOUNTER 2019-11-28 08:41 | Day surgery (SDC) | payer OTHER ==
[~2019-11-28 08:41] MED LIST changes: +BEVACIZUMAB AWWB IVPB SCH; +BEVACIZUMAB IVPB SCH; +DEXTROSE 5% IVPB SCH; -Dexamethasone 20 MG/5 ML VIAL ONE; -Esmolol 100 MG/10 ML VIAL ONE; +FLUOROURACIL IVPB SCH; -Glycopyrrolate 0.2 MG/ML 5 ML SYRINGE ONE; -Iopamidol-370 76% 500 ML 1 ML ONE; +OXALIPLATIN IVPB SCH; -Ondansetron PF 4 MG/2 ML Vial ONE; -PHENYLEPHRINE-NS 100 MCG/ML 10 ML SYRINGE ONE; -PROPOFOL 200 MG/20 ML VIAL ONE; +Palonosetron HCl 0.25 MG in Sodium Chloride 0.9% 50 ML IVPB SCH; -Rocuronium Bromide 10 MG/ML (10ML VIAL) ONE; +SODIUM CHLORIDE 0.9% IVPB SCH; -Succinylcholine Chloride 20 MG/ML 10 ml SYRINGE FS ONE; +WATER IVPB SCH; -diphenhydrAMINE 50 MG/ML VIAL ONE
[2019-11-28] MEDS ORDERED: Sodium Chloride 0.9% 20 ML ONE (10:04)
[2019-11-28 11:18] VITALS: BP 135/87; TEMP 97.8
== END 2019-11-28 14:22 | disposition home or self-care (01) ==
LOC: ONC/OP 08:41
PROVIDERS: ATTEND Internal Medicine Hematology & Oncology
DX: Z51.11 Encounter for antineoplastic chemotherapy (principal); C18.3 Malignant neoplasm of hepatic flexure
CPT/HCPCS: 96375; 96413; 96415; 96417; J1100; J2469; J7070; J9190; J9263

== ENCOUNTER 2019-12-12 09:52 | Day surgery (SDC) | payer OTHER ==
[~2019-12-12 09:52] MED LIST changes: -BEVACIZUMAB AWWB IVPB SCH; -OXALIPLATIN IVPB SCH
[2019-12-12] MEDS ORDERED: Sodium Chloride 0.9% 20 ML ONE (09:58)
[2019-12-12 10:19] VITALS: BP 143/90; TEMP 98.1
== END 2019-12-12 15:54 | disposition home or self-care (01) ==
LOC: ONC/OP 09:52
PROVIDERS: ATTEND Internal Medicine Hematology & Oncology
DX: Z51.11 Encounter for antineoplastic chemotherapy (principal); C18.3 Malignant neoplasm of hepatic flexure
CPT/HCPCS: 96375; 96413; 96415; 96416; 96417; J1100; J2469; J7070; J9263

== ENCOUNTER 2020-01-09 09:13 | Day surgery (SDC) | payer OTHER ==
[2020-01-09] MEDS ORDERED: Sodium Chloride 0.9% 20 ML ONE (10:02)
== END 2020-01-09 13:40 | disposition home or self-care (01) ==
LOC: ONC/OP 09:13
PROVIDERS: ATTEND Internal Medicine Hematology & Oncology
DX: Z51.11 Encounter for antineoplastic chemotherapy (principal); C18.3 Malignant neoplasm of hepatic flexure
CPT/HCPCS: 96375; 96413; 96415; 96416; 96417; J1100; J2469; J7070; J9190; J9263

== ENCOUNTER 2020-01-30 09:16 | Day surgery (SDC) | payer OTHER ==
[2020-01-30] MEDS ORDERED: Sodium Chloride 0.9% 20 ML ONE (09:38)
[2020-01-30 10:28] VITALS: BP 134/82; TEMP 97.8
== END 2020-01-30 13:38 | disposition home or self-care (01) ==
LOC: ONC/OP 09:16
PROVIDERS: ATTEND Internal Medicine Hematology & Oncology
DX: Z51.11 Encounter for antineoplastic chemotherapy (principal); C18.3 Malignant neoplasm of hepatic flexure
CPT/HCPCS: 96375; 96413; 96415; 96416; 96417; J1100; J2469; J7070; J9190; J9263

== ENCOUNTER 2020-02-13 09:11 | Day surgery (SDC) | payer OTHER ==
[2020-02-13] MEDS ORDERED: Sodium Chloride 0.9% 20 ML ONE (09:44)
[2020-02-13 11:21] VITALS: BP 143/91; TEMP 98.2
== END 2020-02-13 14:39 | disposition home or self-care (01) ==
LOC: ONC/OP 09:11
PROVIDERS: ATTEND Internal Medicine Hematology & Oncology
DX: Z51.11 Encounter for antineoplastic chemotherapy (principal); C18.3 Malignant neoplasm of hepatic flexure
CPT/HCPCS: 96375; 96413; 96415; 96416; 96417; J1100; J2469; J7070; J9190; J9263

== ENCOUNTER 2020-02-27 09:14 | Day surgery (SDC) | payer OTHER ==
[2020-02-27] MEDS ORDERED: Sodium Chloride 0.9% 20 ML ONE (09:19)
[2020-02-27 09:23] VITALS: BP 153/93; TEMP 98.3
== END 2020-02-27 14:15 | disposition home or self-care (01) ==
LOC: ONC/OP 09:14
PROVIDERS: ATTEND Internal Medicine Hematology & Oncology
DX: Z51.11 Encounter for antineoplastic chemotherapy (principal); C18.3 Malignant neoplasm of hepatic flexure
CPT/HCPCS: 96375; 96413; 96415; 96416; 96417; J1100; J2469; J7070; J9190; J9263

== ENCOUNTER 2020-03-06 08:27 | Outpatient (CLI) | payer OTHER ==
[2020-03-06] MEDS ORDERED: Iopamidol 370 76% 100 ML VIAL ONE (09:27)
--- NOTE | 2020-03-06 11:22 | CT ---
CT CHEST AND ABDOMEN AND PELVIS WITH IV CONTRAST: Date: 03/06/2020 PROVIDED CLINICAL HISTORY: Colon cancer. FINDINGS: The heart, pericardium, and great vessels demonstrate an unremarkable CT appearance. Left subclavian implanted port is redemonstrated in similar position. There is no evidence for thoracic lymph node enlargement. The airway appears patent and of normal caliber. The majority of the parenchymal abnormalities previously described involving the posterior aspects of the lower lobes have resolved. The previously described 9.0 mm pulmonary nodule involving the superior segment of the right upper lo be persists, having a somewhat curvilinear morphology suggesting the possibility of a small pulmonary AVM. There is no evidence for a new or enlarged pulmonary nodule. There is no pleural fluid or pneumothorax apparent. Interval prominent decrease in size of posterior segment right hepatic lobe mass, now measuring about 8.0 mm in greatest transverse dimension, as compared to about 1.6 cm on prior. There is no evidence for a new hepatic mass. The spleen, pancreas, kidneys, and adrenal glands appear unremarkable. There is no bowel dilatation, inflammatory fat stranding, free fluid, or lymph node enlargement appar ent. The osseous structures demonstrate no concerning lytic or blastic lesions. IMPRESSION: 1. Interval improvement/near resolution of previously described pulmonary parenchymal opacities. The largest persistent parenchymal abnormality demonstrates features suggesting small pulmonary arteriov enous malformation. Continued surveillance is recommended. 2. Interval decrease in right hepatic lobe lesion. POS: RUBEN
== END 2020-03-06 08:28 | disposition home or self-care (01) ==
LOC: BICCT 08:27
PROVIDERS: ATTEND Internal Medicine Hematology & Oncology
DX: C18.3 Malignant neoplasm of hepatic flexure (principal); K76.9 Liver disease, unspecified
CPT/HCPCS: 71260; 74177; Q9967

== ENCOUNTER 2020-03-25 10:48 | Emergency (ER) | payer OTHER, SELFPAY ==
[2020-03-25] MEDS ORDERED: HYDROcodone/Acetaminophen 5/325 mg Tablet ONE (11:06)
[2020-03-25] MEDS ORDERED: Ketorolac Tromethamine 30 MG/ML VIAL ONE (11:06)
== END 2020-03-25 11:13 | disposition home or self-care (01) ==
LOC: ERS 10:48
DX: K08.89 Other specified disorders of teeth and supporting structures (principal); Z79.899 Other long term (current) drug therapy; E11.9 Type 2 diabetes mellitus without complications
CPT/HCPCS: 96372; 99282; J1885

== ENCOUNTER 2020-03-26 10:05 | Day surgery (SDC) | payer OTHER | END 2020-03-26 10:30 | disposition home or self-care (01) | LOC: ONC/OP 10:05 | PROVIDERS: ATTEND Internal Medicine Hematology & Oncology | DX: Z51.11 Encounter for antineoplastic chemotherapy (principal); C18.3 Malignant neoplasm of hepatic flexure | CPT/HCPCS: 99211; G0463; J1100; J2469 ==

== ENCOUNTER 2020-04-09 09:09 | Day surgery (SDC) | payer OTHER ==
[~2020-04-09 09:09] MED LIST changes: +PALONOSETRON HCL 0.05 MG/ML 5 ML VIAL IVP SCH
[2020-04-09 10:15] VITALS: BP 170/93; TEMP 98.5
[2020-04-09] MEDS ORDERED: Sodium Chloride 0.9% 20 ML ONE (10:49)
== END 2020-04-09 14:05 | disposition home or self-care (01) ==
LOC: ONC/OP 09:09
PROVIDERS: ATTEND Internal Medicine Hematology & Oncology
DX: Z51.11 Encounter for antineoplastic chemotherapy (principal); C18.3 Malignant neoplasm of hepatic flexure
CPT/HCPCS: 96375; 96413; 96415; 96417; J1100; J2469; J7070; J9190; J9263

== ENCOUNTER 2020-06-10 09:27 | Day surgery (SDC) | payer OTHER ==
[~2020-06-10 09:27] MED LIST changes: -Palonosetron HCl 0.25 MG in Sodium Chloride 0.9% 50 ML IVPB SCH
[2020-06-10] MEDS ORDERED: Sodium Chloride 0.9% 20 ML ONE (09:30)
[2020-06-10 09:55] VITALS: BP 140/87; TEMP 97.6
== END 2020-06-10 13:55 | disposition home or self-care (01) ==
LOC: ONC/OP 09:27
PROVIDERS: ATTEND Internal Medicine Hematology & Oncology
DX: Z51.11 Encounter for antineoplastic chemotherapy (principal); C18.3 Malignant neoplasm of hepatic flexure
CPT/HCPCS: 96375; 96413; 96415; 96417; J1100; J2469; J7070; J9190; J9263

== ENCOUNTER 2020-07-03 09:54 | Day surgery (SDC) | payer OTHER ==
[~2020-07-03 09:54] MED LIST changes: +Palonosetron HCl 0.25 MG in Sodium Chloride 0.9% 50 ML IVPB SCH
[2020-07-03] MEDS ORDERED: Sodium Chloride 0.9% 20 ML ONE (10:13)
== END 2020-07-03 14:43 | disposition home or self-care (01) ==
LOC: ONC/OP 09:54
PROVIDERS: ATTEND Internal Medicine Hematology & Oncology
DX: Z51.11 Encounter for antineoplastic chemotherapy (principal); C18.3 Malignant neoplasm of hepatic flexure
CPT/HCPCS: 96375; 96413; 96415; 96416; 96417; J1100; J2469; J7070; J9190; J9263

== ENCOUNTER 2020-07-10 14:03 | Outpatient (CLI) | payer OTHER ==
[~2020-07-10 14:03] MED LIST changes: -BEVACIZUMAB IVPB SCH; -DEXTROSE 5% IVPB SCH; -FLUOROURACIL IVPB SCH; +Iopamidol 370 76% 100 ML VIAL ONE; -PALONOSETRON HCL 0.05 MG/ML 5 ML VIAL IVP SCH; -Palonosetron HCl 0.25 MG in Sodium Chloride 0.9% 50 ML IVPB SCH; -SODIUM CHLORIDE 0.9% IVPB SCH; -WATER IVPB SCH
--- NOTE | 2020-07-10 14:59 | CT ---
CT OF THE CHEST, ABDOMEN AND PELVIS WITH IV CONTRAST INDICATION: History of colon cancer with history of partial colectomy COMPARISON: CT of the chest, abdomen and pelvis dated February 27, 2020 and October 20, 2019 FINDINGS: CHEST: Lungs: No suspicious pulmonary nodules evident. There is an AV malformation and seen within the super ior segment of the right lower lobe that is stable. Pleural space: No effusion. Mediastinum: No pathologically enlarged lymph nodes are evident. Axilla: No pathologically enlarged lymph nodes. ABDOMEN: Liver: The small hypodense lesion involving segment 6 of the right hepatic lobe is stable measuring 8 mm. No new lesion is evident Gallbladder: Normal appearing. Pancreas: Normal. Adrenal glands: Normal. Spleen: Normal. Kidneys and ureters: Normal. No hydronephrosis. Vasculature: Normal. Lymph nodes:No lymphadenopathy. Free fluid in abdomen:No free fluid is evident. PELVIS: Small and large bowel: There is stable postsurgical change of a right hemicolectomy. There is a ileoc olonic anastomosis in the right lower quadrant of the abdomen. No definite recurrent soft tissue mass is evident at the anastomotic site. No pathologically enlarged lymph nodes are evident at the op erative site. Appendix:Surgically absent Bladder: Normal. Rectal and perirectal soft tissues:Normal. Reproductive structures: Normal. Free fluid in pelvis: No free fluid is evident. Lymphadenopathy pelvis: No lymphadenopathy is evident. Osseous structures: There are stable small bone island within the left ischium and left femoral head. No new suspicious osteolytic or osteoblastic lesion is identified. There is scattered degenerative and osteoarthritic changes. Soft tissues:Normal. IMPRESSION: 1. Stable examination the chest, abdomen and pelvis. 2. The small hypodense lesion suspicious for hepatic metastatic disease has been stable in size from the most recent comparison dated February 27, 2020. This is reduced in size from a comparison dated October 20, 2019. 3. Stable arteriovenous malformation and the superior segment of the right lower lobe. No new suspici ous pulmonary nodules are evident. 4. Stable postsurgical change of a right hemicolectomy and a right lower quadrant ileocolonic anastom osis. No overt evidence to suggest recurrent lesion at the anastomotic site.
== END 2020-07-10 14:04 | disposition home or self-care (01) ==
LOC: BICCT 14:03
PROVIDERS: ATTEND Internal Medicine Hematology & Oncology
DX: C18.3 Malignant neoplasm of hepatic flexure (principal); K76.9 Liver disease, unspecified
CPT/HCPCS: 71260; 74177; Q9967

== ENCOUNTER 2020-07-16 11:41 | Day surgery (SDC) | payer OTHER ==
[~2020-07-16 11:41] MED LIST changes: +BEVACIZUMAB IVPB SCH; +DEXTROSE 5% IVPB SCH; +FLUOROURACIL IVPB SCH; -Iopamidol 370 76% 100 ML VIAL ONE; +PALONOSETRON HCL 0.05 MG/ML 5 ML VIAL IVP SCH; +Palonosetron HCl 0.25 MG in Sodium Chloride 0.9% 50 ML IVPB SCH; +SODIUM CHLORIDE 0.9% IVPB SCH; +WATER IVPB SCH
[2020-07-16] MEDS ORDERED: Sodium Chloride 0.9% 20 ML ONE (12:03)
[2020-07-16 12:13] VITALS: BP 138/83; TEMP 98.1
== END 2020-07-16 16:38 | disposition home or self-care (01) ==
LOC: ONC/OP 11:41
PROVIDERS: ATTEND Internal Medicine Hematology & Oncology
DX: Z51.11 Encounter for antineoplastic chemotherapy (principal); C18.3 Malignant neoplasm of hepatic flexure
CPT/HCPCS: 96375; 96413; 96415; 96416; 96417; J1100; J2469; J7070; J9190; J9263

== ENCOUNTER 2020-07-30 09:05 | Day surgery (SDC) | payer OTHER ==
[~2020-07-30 09:05] MED LIST changes: -PALONOSETRON HCL 0.05 MG/ML 5 ML VIAL IVP SCH
[2020-07-30] MEDS ORDERED: Sodium Chloride 0.9% 20 ML ONE (09:08)
[2020-07-30] MEDS ORDERED: PALONOSETRON HCL 0.05 MG/ML 5 ML VIAL IVP SCH (09:15)
[2020-07-30 09:20] VITALS: BP 157/87; TEMP 97.7
== END 2020-07-30 11:15 | disposition home or self-care (01) ==
LOC: ONC/OP 09:05
PROVIDERS: ATTEND Internal Medicine Hematology & Oncology
DX: Z51.11 Encounter for antineoplastic chemotherapy (principal); C18.3 Malignant neoplasm of hepatic flexure
CPT/HCPCS: 96375; 96413; 96416; 96417; J1100; J2469; J9190

== ENCOUNTER 2020-09-10 21:35 | Emergency (ER) | payer OTHER, SELFPAY ==
[2020-09-10] MEDS ORDERED: Ondansetron PF 4 MG/2 ML Vial ONE (22:32)
[2020-09-10] MEDS ORDERED: Morphine 4 MG/ML VIAL ONE (22:32)
[2020-09-10 22:38] LABS: #Lymphocytes 1.8 thou/uL (1.20-3.40); #Neutrophils 6.2 thou/uL (1.40-6.50); %Basophils 0.2 % (0.0-1.0); %Eosinophils 0.5 % (0.0-10.0); %Lymphocytes 19.5 % (21.0-51.0); %Neutrophils 68.7 % (42.0-75.0); Hemoglobin 15.1 g/dL (14.0-18.0); Mean Corpuscular Hemoglobin 32.3 pg (27.0-31.0); Mean Corpuscular Volume 92.2 fL (78.0-98.0); Mean Platelet Volume 9.8 fL (7.4-10.4); Platelet Count 157 thou/uL (130-400); RBC Distribution Width 11.8 % (11.5-14.5); Red Blood Cell (RBC) Count 4.68 mill/uL (4.70-6.10)
[2020-09-10 22:58] LABS: ALT (SGPT) 83 U/L (8-55); AST (SGOT) 73 U/L (5-34); Albumin 3.9 g/dL (3.5-5.0); Alkaline Phosphatase 79 U/L (40-110); Anion Gap 11 mmol/L (10-20); BUN (Urea Nitrogen) 10 mg/dL (8.9-20.6); Bilirubin, Total 1.5 mg/dL (0.2-1.2); Calc. Creatinine Clearance 0 mL/min (70-130); Calcium 8.7 mg/dL (7.8-10.44); Carbon Dioxide 28 mmol/L (22-29); Chloride 99 mmol/L (98-107); Globulin 3.3 g/dL (2.4-3.5); Glucose 269 mg/dL (70-105); Potassium 4.1 mmol/L (3.5-5.1); Protein, Total 7.2 g/dL (6.0-8.3); Sodium 134 mmol/L (136-145)
== END 2020-09-10 23:35 | disposition home or self-care (01) ==
LOC: ERS 21:35
DX: M79.601 Pain in right arm (principal); E11.9 Type 2 diabetes mellitus without complications; Z79.899 Other long term (current) drug therapy
CPT/HCPCS: 71045; 80053; 85025; 93005; 96374; 96375; J2270; J2405

== ENCOUNTER 2020-10-21 09:10 | Day surgery (SDC) | payer SELFPAY ==
[2020-10-21] MEDS ORDERED: Sodium Chloride 0.9% 20 ML ONE (09:19)
[2020-10-21] MEDS ORDERED: SODIUM CHLORIDE 0.9% IVPB SCH (09:30)
[2020-10-21] MEDS ORDERED: BEVACIZUMAB IVPB SCH (09:30)
[2020-10-21 09:45] VITALS: BP 137/86
== END 2020-10-21 10:55 | disposition home or self-care (01) ==
LOC: ONC/OP 09:10
PROVIDERS: ATTEND Internal Medicine Hematology & Oncology
DX: Z51.11 Encounter for antineoplastic chemotherapy (principal); C18.3 Malignant neoplasm of hepatic flexure
CPT/HCPCS: 96413; J1642

== ENCOUNTER 2020-12-23 08:26 | Outpatient (CLI) | payer MEDICAID, OTHER ==
[2020-12-23] MEDS ORDERED: Iopamidol 370 76% 100 ML VIAL ONE (09:33)
== END 2020-12-23 08:27 | disposition home or self-care (01) ==
LOC: CT 08:26
PROVIDERS: ATTEND Internal Medicine Hematology & Oncology
DX: C18.3 Malignant neoplasm of hepatic flexure (principal); K76.9 Liver disease, unspecified
CPT/HCPCS: 71260; 74177; Q9967

== ENCOUNTER 2021-01-28 10:48 | Day surgery (SDC) | payer OTHER ==
[~2021-01-28 10:48] MED LIST changes: +Atropine Sulfate 0.25 MG in Sodium Chloride 0.9% 50 ML IVPB SCH; -DEXTROSE 5% IVPB SCH; +Dexamethasone Sod Phosphate 20 MG in Sodium Chloride 0.9% 50 ML IVPB SCH; +Irinotecan 350 MG in Sodium Chloride 0.9% 500 ML IVPB SCH; +LEUCOVORIN CALCIUM IVPB SCH; +PALONOSETRON HCL 0.05 MG/ML 5 ML VIAL IVP SCH; -WATER IVPB SCH
[2021-01-28 11:29] VITALS: BP 151/90; TEMP 98.1
[2021-01-28] MEDS ORDERED: Sodium Chloride 0.9% 20 ML ONE (12:56)
== END 2021-01-28 15:51 | disposition home or self-care (01) ==
LOC: ONC/OP 10:48
PROVIDERS: ATTEND Internal Medicine Hematology & Oncology
DX: Z51.11 Encounter for antineoplastic chemotherapy (principal); C18.3 Malignant neoplasm of hepatic flexure
CPT/HCPCS: 96366; 96367; 96375; 96413; 96415; 96416; 96417; J0461; J0640; J1100; J2469; J7030; J9190; J9206

== ENCOUNTER 2021-01-31 11:00 | Day surgery (SDC) | payer OTHER ==
[2021-01-31] MEDS ORDERED: PEGFILGRASTIM-JMDB 6 MG/0.6 ML SYRINGE SQ SCH (12:00)
[2021-01-31 15:04] VITALS: BP 143/90
== END 2021-01-31 15:05 | disposition home or self-care (01) ==
LOC: ONC/OP 11:00
PROVIDERS: ATTEND Internal Medicine Hematology & Oncology
DX: Z76.89 Persons encountering health services in other specified circumstances (principal); C18.3 Malignant neoplasm of hepatic flexure
CPT/HCPCS: 96372

== ENCOUNTER 2021-02-18 11:09 | Day surgery (SDC) | payer OTHER ==
[2021-02-18] MEDS ORDERED: Sodium Chloride 0.9% 220 ML ONE (11:26)
[2021-02-18 15:15] VITALS: BP 158/96; TEMP 98
== END 2021-02-18 15:15 | disposition home or self-care (01) ==
LOC: ONC/OP 11:09
PROVIDERS: ATTEND Internal Medicine Hematology & Oncology
DX: Z51.11 Encounter for antineoplastic chemotherapy (principal); C18.3 Malignant neoplasm of hepatic flexure; E11.9 Type 2 diabetes mellitus without complications; I10 Essential (primary) hypertension; Z98.890 Other specified postprocedural states
CPT/HCPCS: 96367; 96375; 96413; 96416; 96417; J0461; J0640; J1100; J2469; J7030; J9190; J9206

== ENCOUNTER 2021-03-04 10:39 | Day surgery (SDC) | payer OTHER ==
[~2021-03-04 10:39] MED LIST changes: -Palonosetron HCl 0.25 MG in Sodium Chloride 0.9% 50 ML IVPB SCH
[2021-03-04] MEDS ORDERED: Sodium Chloride 0.9% 20 ML ONE (10:42)
[2021-03-04 11:09] VITALS: BP 136/91; TEMP 98.5
== END 2021-03-04 15:37 | disposition home or self-care (01) ==
LOC: ONC/OP 10:39
PROVIDERS: ATTEND Internal Medicine Hematology & Oncology
DX: Z51.11 Encounter for antineoplastic chemotherapy (principal); C18.3 Malignant neoplasm of hepatic flexure
CPT/HCPCS: 96367; 96375; 96413; 96415; 96416; 96417; J0461; J0640; J1100; J2469; J7030; J9190; J9206

== ENCOUNTER → 2021-03-31 | Day surgery (SDC) | payer OTHER ==
[~2021-03-31] MED LIST changes: +Sodium Chloride 0.9% 10 ML ONE; +Sodium Chloride 0.9% 20 ML ONE
[2021-03-31 11:08] VITALS: BP 146/93; TEMP 97.7
== END ==
LOC: ONC/OP 09:43
PROVIDERS: ATTEND Internal Medicine Hematology & Oncology
DX: Z51.11 Encounter for antineoplastic chemotherapy (principal); C18.3 Malignant neoplasm of hepatic flexure
CPT/HCPCS: 96367; 96375; 96413; 96415; 96416; 96417; J0461; J0640; J1100; J2469; J7030

== ENCOUNTER 2021-04-14 09:59 | Day surgery (SDC) | payer OTHER ==
[~2021-04-14 09:59] MED LIST changes: -Sodium Chloride 0.9% 10 ML ONE; -Sodium Chloride 0.9% 20 ML ONE
[2021-04-14] MEDS ORDERED: Sodium Chloride 0.9% 10 ML ONE ×2 (10:10)
[2021-04-14] MEDS ORDERED: PALONOSETRON HCL 0.05 MG/ML 5 ML VIAL ONE (10:56)
[2021-04-14 11:37] VITALS: BP 145/93; TEMP 98.3
== END 2021-04-14 14:56 | disposition home or self-care (01) ==
LOC: ONC/OP 09:59
PROVIDERS: ATTEND Internal Medicine Hematology & Oncology
DX: Z51.11 Encounter for antineoplastic chemotherapy (principal); C18.3 Malignant neoplasm of hepatic flexure
CPT/HCPCS: 96367; 96375; 96413; 96416; 96417; J0461; J0640; J1100; J2469; J7030; J9190; J9206

== ENCOUNTER 2021-04-24 08:51 | Outpatient (CLI) | payer OTHER | END 2021-04-24 08:52 | disposition home or self-care (01) | LOC: BICCT 08:51 | PROVIDERS: ATTEND Internal Medicine Hematology & Oncology | DX: C18.3 Malignant neoplasm of hepatic flexure (principal); R16.0 Hepatomegaly, not elsewhere classified | CPT/HCPCS: 71260; 74177 ==

== ENCOUNTER 2022-03-05 15:37 | Emergency (ER) | payer OTHER, SELFPAY ==
[2022-03-05] MEDS ORDERED: Acetaminophen 500 MG TAB ONE (16:48)
== END 2022-03-05 17:52 | disposition home or self-care (01) ==
LOC: ERS 15:37
DX: J11.1 Influenza due to unidentified influenza virus with other respiratory manifestations (principal); E11.9 Type 2 diabetes mellitus without complications
CPT/HCPCS: 71045; 87804

== ENCOUNTER 2023-03-13 07:57 | Emergency (ER) | payer OTHER ==
[2023-03-13] MEDS ORDERED: HYDROcodone/Acetaminophen 5/325 mg Tablet ONE (08:43)
== END 2023-03-13 10:26 | disposition home or self-care (01) ==
LOC: ERS 07:57
DX: M25.561 Pain in right knee (principal); E11.9 Type 2 diabetes mellitus without complications